=== PATIENT | female | born 1965 | race Caucasian/White ===

== ENCOUNTER → 2016-09-09 | Outpatient (CLI) | payer MEDICAID | LOC: SBRMNEURO 20:00 | PROVIDERS: ATTEND Internal Medicine Pulmonary Disease | DX: G47.33 Obstructive sleep apnea (adult) (pediatric) (principal); G47.31 Primary central sleep apnea ==

== ENCOUNTER → 2017-12-15 | Outpatient (CLI) | payer OTHER, MEDICAID | LOC: BMCIMAGING 13:01 | PROVIDERS: ATTEND Family Medicine | DX: Z12.31 Encounter for screening mammogram for malignant neoplasm of breast (principal); Z13.820 Encounter for screening for osteoporosis; M85.89 Other specified disorders of bone density and structure, multiple sites; Z78.0 Asymptomatic menopausal state ==

== ENCOUNTER 2018-04-30 07:47 | Emergency (ER) | payer OTHER, MEDICAID ==
--- NOTE | 2018-04-30 07:57 | EDPHY ---
HPI/HX/ROS/PE/MDM Narrative: CHIEF COMPLAINT: Fall, head injury HPI: The patient is a 52-year-old female with a history of M S. This morning she was attempting to make her bed, when she lost balance and fell backwards, striking the back of her head on furniture. She did not lose consciousness. She was brought to the emergency department by ambulance. She complains of pain and stinging at the site of the laceration on her right occiput as well as diffuse neck pain. She denies any new numbness, weakness or tingling. REVIEW OF SYSTEMS: Aside from elements discussed in the HPI, a comprehensive 10-point review of systems was reviewed and is negative. PMH: Includes MS, hypertension, history of "kidney disease". SOCIAL HISTORY: [facility]. Uses marijuana. Denies alcohol. PHYSICAL EXAM: General:Patient is alert, in no acute distress. Head: A 2 cm linear laceration is present on the right occiput. ENT:Eyes are normal to inspection. ENT inspection normal. Neck: Normal inspection. Diffuse midline and lateral tenderness is present. No deformity. Respiratory:No respiratory distress. Breath sounds normal bilaterally. Cardiovascular: Regular rate and rhythm. Strong peripheral pulses. Normal cap refill. Abdomen:The abdomen is nontender to palpation. There are no peritoneal signs. There are normal bowel sounds. Back: Normal to inspection. No tenderness to palpation. Skin: Normal color. No rash. Warm and dry. Extremities: Normal appearance. Full range of motion. Neuro: Oriented x3. Normal motor function. Normal sensory function. MDM: This patient presents with scalp laceration and diffuse neck pain after mechanical fall. I presented her with options for wound closure and she has chosen skin adhesive. CT scan is negative of the head and cervical spine. Procedure: Laceration repair with skin glue. The 2 cm laceration on the right occiput was cleaned and explored to its base. There were no deep structures involved. The wound was repaired with tissue adhesive, with excellent wound approximation. The procedure was performed by myself. - Data Points Imaging Results: Imaging Impressions Cervical Spine CT 04/30/18 07:53 Impression: 1. No acute intracranial process or cervical spine fracture/subluxation. 2. Mild degenerative spondylosis of the cervical spine. Head CT 04/30/18 07:53 Impression: 1. No acute intracranial process or cervical spine fracture/subluxation. 2. Mild degenerative spondylosis of the cervical spine. General Time Seen by Provider: 04/30/18 07:52 Initial Vital Signs: Initial Vital Signs Temperature (C) 36.9 C 04/30/18 07:47 Heart Rate 59 L 04/30/18 07:47 Respiratory Rate 16 04/30/18 07:47 Blood Pressure 126/90 H 04/30/18 07:47 O2 Sat (%) 98 04/30/18 07:47 O2 Delivery Mode Room Air Allergies/Adverse Reactions: meperidine [From Demerol] Allergy (Verified 04/30/18 07:59) Home Medications: Medication Instructions Recorded Atenolol 04/30/18 Gabapentin 04/30/18 Departure - Departure Disposition: Home, Routine, Self-Care Clinical Impression: Scalp laceration Qualifiers: Encounter type: initial encounter Qualified Code(s): S01.01XA - Laceration without foreign body of scalp, initial encounter Condition: Good Instructions: Laceration (ED) Additional Instructions: Follow-up with your primary doctor within 72 hours. Return to the Emergency Department for severe headache, vomiting, vision changes, confusion, fever or other concerns. Use ibuprofen as directed for neck pain. Referrals: Patient,NotPresent [Primary Care Provider] - As per Instructions
[2018-04-30 08:01] VITALS: BP 126/90
[2018-04-30] MEDS ORDERED: SKIN ADHESIVE (DERMABOND) 1 EACH TP ONE (08:28)
== END 2018-04-30 08:45 | disposition home or self-care (01) ==
LOC: EDUNIT#
PROC: 0HQ0XZZ Repair Scalp Skin, External Approach (ICD-10-PCS; principal; 2018-04-30)
DX: S01.01XA Laceration without foreign body of scalp, initial encounter (principal); I10 Essential (primary) hypertension; W01.198A Fall on same level from slipping, tripping and stumbling with subsequent striking against other object, initial encounter; Y93.E9 Activity, other interior property and clothing maintenance